=== PATIENT | male | born 1955 | race Caucasian/White ===

== ENCOUNTER → 2016-12-14 | Outpatient (CLI) | payer OTHER ==
[~2016-12-14] MED LIST: IOPAMIDOL (ISOVUE 370) 100 ML BTL IV ONE
== END ==
LOC: FIMAGING 10:15
PROVIDERS: ATTEND Thoracic Surgery (Cardiothoracic Vascular Surgery)
DX: Z01.810 Encounter for preprocedural cardiovascular examination (principal); I35.0 Nonrheumatic aortic (valve) stenosis; I70.0 Atherosclerosis of aorta; Z95.2 Presence of prosthetic heart valve
CPT/HCPCS: Q9967

== ENCOUNTER 2018-07-08 06:16 | Day surgery (SDC) | payer OTHER ==
[2018-07-08] MEDS ORDERED: NS 1,000 ML IV ONE (06:20)
[2018-07-08] MEDS ORDERED: ASPIRIN EC 325 MG TAB PO ONE (06:20)
[2018-07-08] MEDS ORDERED: diphenhydrAMINE 25 MG CAP PO ONE (06:20)
[2018-07-08] MEDS ORDERED: FAMOTIDINE 20 MG TAB PO ONE (06:20)
[2018-07-08] MEDS ORDERED: DIAZEPAM 5 MG TAB PO ONE (06:20)
--- NOTE | 2018-07-08 06:35 | PDHPUP ---
History & Physical Update H&P update statement: This history and physical update is based on an assessment of the patient which was completed after admission or registration (within 24 hours), but prior to the surgery/procedure. H&P update: H&P reviewed & patient examined, no change in patient's condition since H&P completed
--- NOTE | 2018-07-08 06:35 | PDPROPOC ---
Sedation Plan of Care Sedation Plan of Care: mental status noted, patient educated of risks, benefits , alternatives, patient can tolerate sedation ASA Classification: ASA 2 Planned drugs: fentanyl, midazolam Mallampati Score: Class 2 Mallampati Reference Image: Patient passed 3-3-2 rule?: Yes
[2018-07-08 06:53] LABS: PLATELET COUNT 204 10^3/uL (150-400)
[2018-07-08] MEDS ORDERED: LIDOCAINE 1% 300 MG/30 ML SDV ONE (06:56)
[2018-07-08] MEDS ORDERED: fentaNYL 100 MCG/2 ML INJ ONE (06:57)
[2018-07-08] MEDS ORDERED: IOPAMIDOL (ISOVUE-370) 150 ML BTL IV ONE ×2 (06:57→11:42)
[2018-07-08] MEDS ORDERED: MIDAZOLAM 2 MG/2 ML VIAL ONE (06:57)
[2018-07-08 07:01] LABS: INR 0.96 (0.83-1.16); PROTIME(PATIENT) 12.4 SEC (12.0-15.0)
[2018-07-08] MEDS ORDERED: OXYCODONE/APAP 5/325 TAB PO PRN (08:02)
[2018-07-08] MEDS ORDERED: ONDANSETRON 4 MG/2 ML VIAL IVP PRN (08:02)
[2018-07-08] MEDS ORDERED: ATROPINE SULFATE 1 MG/10 ML SYR IVP PRN (08:02)
[2018-07-08] MEDS ORDERED: HYDROCODONE/APAP 5/325 TAB PO PRN (08:02)
--- NOTE | 2018-07-08 11:26 | CPIP ---
[f rep st] INVASIVE CARDIAC PROCEDURE DATE OF PROCEDURE: 07/08/2018 INDICATION FOR PROCEDURE: Bioprosthetic aortic valve degeneration. PROCEDURE: 1. Nonselective left groin sheathogram. 2. 7-[place] sheath left common femoral vein. 3. Right heart catheterization with [place] catheter. 4. Bilateral coronary angiography. 5. Abdominal aortogram. HISTORY: Briefly, this is a 62-year-old male with history of prior bioprosthetic aortic valve replac ement. The patient has noticed a decrease in exercise tolerance, although he is quite physically act elza and this has not been profound. He did have an echocardiogram, which showed significant elevated gradient across his bioprosthetic aortic valve, which has been worsening over the last year. Given the fact that he has finally noted some symptomatic changes and having his echocardiogram findings, t he patient was consented for right and left heart catheterization in anticipation for eventual reoper ative AVR versus TAVR and SAVR. DESCRIPTION OF PROCEDURE: After informed consent, the patient was brought to [facility] where the left groi n was prepped and draped in sterile fashion. Using lidocaine, a short -[place] in the left common femoral artery verified angiographically. A 7-[place] sheath in the left common femoral vein. [place] catheter was advanced. Wedge pressure mean of 7, A-wave 9, V-wave 12. PA pressure systol ic 28, diastolic 8, mean of 15. RV pressure systolic 33, diastolic 1, end of 6. RV pressure systoli c 32, diastolic 1, end of 6. RA pressure mean of 5, A-wave of 8, and V-wave of 7. Cardiac output wa s measured to be 5.4 by Norbert with a cardiac index of 2.8. AO sat was 97%. PA sat was 78%. [place] catheter was removed. A JL4 catheter was advanced to left coronary artery. This revealed a left dominant circulation with a normal left main. Ostial LAD had 20% disease. The circumflex gave off an extremely tiny marginal proximally, a medium-sized marginal in the midbody, and the LPDA and LPLS appeared to be widely paten t and free of disease. The LAD was a long vessel, which wrapped around the apex. The LAD gave off a medium to large diagonal artery, which was healthy and free of disease. The distal LAD appeared to be healthy and free of disease. After these images were obtained, the JL4 catheter was removed. A JR4 catheter was advanced to the right coronary artery. Images of the right coronary artery reveal ed a nondominant right coronary artery with no significant disease. After these images were obtained , pigtail catheter was advanced to the descending aorta. Abdominal aortogram showed widely patent di stal ascending aorta, widely patent common , external, internal iliac arteries and widely patent comm on femoral arteries bilaterally. After these images were obtained, the pigtail catheter was removed over a 0.035 wire. IMPRESSION: 1. Normal pulmonic pressures. 2. Normal cardiac output. 3. Mild noncritical proximal left anterior descending disease. PLAN: The patient will have CTs of the chest, abdomen, and pelvis, as well as carotid ultrasound stuart lala. Patient will be evaluated in the office as an outpatient with further discussion with CT Surgery about plans for reoperative AVR versus TAVR and SAVR. /[id number]/MODL
--- NOTE | 2018-07-09 13:12 | CPEKG ---
Test Reason : OPEN Blood Pressure : / mmHG Vent. Rate : 055 BPM Atrial Rate : 054 BPM P-R Int : 157 ms QRS Dur : 080 ms QT Int : 430 ms P-R-T Axes : -53 -58 021 degrees QTc Int : 412 ms Sinus rhythm Anteroseptal infarct, old Confirmed by Sky Hernández ([id number]) on 07/09/2018 1:11:43 PM Referred By: Terrance Caceres Confirmed By:Sky Hernández
== END 2018-07-08 13:30 | disposition home or self-care (01) ==
LOC: FCATH 06:16
PROVIDERS: ATTEND Internal Medicine Cardiovascular Disease
PROC: B2151ZZ Fluoroscopy of Left Heart using Low Osmolar Contrast (ICD-10-PCS; principal; 2018-07-08)
PROC: B4101ZZ Fluoroscopy of Abdominal Aorta using Low Osmolar Contrast (ICD-10-PCS; principal; 2018-07-08)
PROC: B2111ZZ Fluoroscopy of Multiple Coronary Arteries using Low Osmolar Contrast (ICD-10-PCS; principal; 2018-07-08)
PROC: 4A023N8 Measurement of Cardiac Sampling and Pressure, Bilateral, Percutaneous Approach (ICD-10-PCS; principal; 2018-07-08)
DX: I35.0 Nonrheumatic aortic (valve) stenosis (principal); Z95.2 Presence of prosthetic heart valve
CPT/HCPCS: J1644; J2250; J3010; Q9967

== ENCOUNTER 2018-07-29 07:22 | Inpatient (IN) | payer OTHER | END 2018-07-30 13:37 | disposition home or self-care (01) | LOC: F3N 07:22 → F2W 15:30 ==